=== PATIENT | female | born 1955 | race Caucasian/White ===

== ENCOUNTER 2017-01-12 20:24 | Emergency (ER) | payer MEDICARE, OTHER ==
[~2017-01-12 20:24] MED LIST: AMB10 PO; BETIMOL0.25 % OP; COREG CR80 MG PO; COREGCR10 PO; LIPITOR20 PO; LORTAB10 PO; NEXIUM40 PO; PAX20 PO; PAXIL40 MG PO; PLAVIX PO; PREM625 PO; PRIN10 PO; SEROQUEL1C PO
[2017-06-22] MEDS ORDERED: NORCO1 TAB PO (23:28)
[2017-06-22] MEDS ORDERED: CELEXA40 MG PO (23:29)
[2017-06-22] MEDS ORDERED: ESTRACE1 MG PO (23:29)
[2017-06-23] MEDS ORDERED: LIPITOR20 (19:12)
[2017-06-23] MEDS ORDERED: NORV5 PO (19:12)
[2017-06-23] MEDS ORDERED: LIPITOR20 PO (19:13)
== END 2017-01-12 21:16 | disposition home or self-care (01) ==
LOC: ER 20:24
DX: M54.5 Low back pain (principal); F17.200 Nicotine dependence, unspecified, uncomplicated; Z79.899 Other long term (current) drug therapy
CPT/HCPCS: 96372; 99283; J2800